=== PATIENT | male | born 1980 | race Caucasian/White ===

== ENCOUNTER 2019-06-07 22:27 | Emergency (ER) | payer MEDICAID, SELFPAY ==
[2019-06-07 22:38] VITALS: BP 169/103; PULSE 94; RESP 18; TEMP 36.8; O2SAT 94
--- NOTE | 2019-06-07 22:49 | ED.GENADUL_ITS ---
Discharge Plan Disposition Patient Disposition: HOME Condition: Good Discharge Details Chief Complaint: Sorethroat Clinical Impression: Tonsillitis, phlegmonous Primary Care Provider: Garret Reed ED Provider: Rafa Harris Meds and New Rx's Prescriptions: New amoxicillin-pot clavulanate [Augmentin] 875-125 mg tablet 1 tab PO BID Qty: 20 RF: 0 Discharge Instructions Instructions: Amoxicillin/Clavulanate Potassium (By mouth), Tonsillitis (ED) Additional Instructions: Rest and hydrate. Take antibiotic as prescribed. Alternate ibuprofen with acetaminophen for pain. Cepacol lozenges can help with throat pain as well. Will need follow-up with ear nose and throat in 24 to 48 hours. Return to ED if difficulty breathing, inability to swallow, mental status changes, other concerns or problems. Referrals: Rober Morris MD [ [facility] STAFF PHYSICIAN] - Medical Decision Making <SERGIO Isbell - Last Filed: 06/07/19 23:43> 22:52 This is a nontoxic-appearing 39-year-old male presenting to the emergency department with sore throat over the last 3 days. Physical exam concerning for early left peritonsillar abscess with notable uvula shift to the right. Muffled voice present on exam. No other significant physical exam findings. Vital signs stable. IV established 10 of Decadron IV push and Unasyn 3 g IV given. Will send patient to CT scan to evaluate severity of abscess. Patient back from CT scan. Labs demonstrate elevated white count and CRP. Case is signed out to Dr. Harris at shift change. See his note for final disposition <Rafa Harris MD - Last Filed: 06/08/19 00:39> Patient CT scan shows tonsillitis as well as phlegmon left palatine tonsils. There is no actual fluid collection or abscess. Does have some lymphadenopathy. Patient reports actually feeling quite a bit better. Will continue on Augmentin. Will refer to ENT for follow-up in 2448 hrs. Patient is to hydrate and use ibuprofen or acetaminophen for discomfort. Return to ED for inability to swallow, difficulty breathing, mental status changes, other concerns or problems. Lab Data Lab results reviewed: Yes I reviewed the patient's lab results. HPI <SERGIO Isbell - Last Filed: 06/07/19 23:43> General Date/Time Provider Initiated Documentation: 06/07/19 22:45 . HPI Narrative: Patient presents to the emergency department with 3 days of worsening throat pain. He locates the pain on the left side with radiation into his jaw and zoroastrianism. He admits to a change in his voice. No fevers. Is having difficulty swallowing secondary to the pain. He denies any shortness of breath Related Data Home Medications Medication Instructions Recorded Confirmed amoxicillin-pot clavulanate 1 tab PO BID #20 tab 06/08/19 [Augmentin] Previous Rx's Medication Instructions Recorded amoxicillin-pot clavulanate 1 tab PO BID #20 tab 06/08/19 [Augmentin] Allergies Allergy/AdvReac Type Severity Reaction Status Date / Time No Known Allergies Allergy Unverified 06/07/19 22:41 General Stated Complaint: Sorethroat SHAVON: 4 Review of Systems <SERGIO Isbell - Last Filed: 06/07/19 23:43> Constitutional Constitutional: Denies chills, Denies fever(s), Denies malaise and Denies weakness ENT Ears, Nose, Mouth, and Throat: Reports change in voice, Denies nasal discharge, Denies neck mass, Reports neck pain, Reports sore throat and Reports throat swelling Cardiovascular Cardiovascular: Denies chest pain and Denies dyspnea Respiratory Respiratory: Denies dyspnea Gastrointestinal Gastrointestinal: Denies nausea and Denies vomiting Musculoskeletal Musculoskeletal: Reports neck pain Neurologic Neurologic: Denies weakness Allergic/Immunologic Allergic/Immunologic: Reports throat swelling PFS <SERGIO Isbell - Last Filed: 06/07/19 23:43> Family History Mother No problems noted. Father No problems noted. Brother No problems noted. Daughter No problems noted. Social History Smoking/Tobacco Use Status: Current every day Alcohol Intake: current Alcohol Intake frequency: 3 or more drinks per day Drug use: Daily Substance use type: marijuana Do you feel safe at home: Yes Exam <SERGIO Isbell Last Filed: 06/07/19 23:43> Const General: cooperative, healthy appearing and comfortable Nutritional Appearance: average body habitus Orientation: alert, awake and oriented x3 HENMT Head: normal to inspection Ears: hearing grossly normal bilaterally, external ears normal and TM's normal bilaterally Face and sinus: normal facial exam Mouth: oral mucosae normal, lip normal and tongue normal Teeth and gingiva: dentition normal Throat: posterior oropharynx abnormal edema, erythema and exudates and uvula laterally displaced to the right Other: No trismus Eyes General: appearance normal, both eyes and all related structures Pupils: PERRL EOM: EOM intact bilaterally Neck Neck: normal visual inspection, full ROM and no lymphadenopathy Lymphatic: lymphadenopathy Chest Chest: normal inspection of the chest Resp Effort & Inspection: normal respiratory effort Auscultation: clear to auscultation bilaterally Cardio Rate: regular rate Rhythm: regular rhythm Skin General skin exam: no rashes or lesions noted Course <SERGIO Isbell - Last Filed: 06/07/19 23:43> Vital Signs Vital signs: Vital Signs Temperature 36.8 C 06/07/19 22:38 Pulse 94 H 06/07/19 22:38 Respiratory Rate 18 06/07/19 22:38 Blood Pressure 169/103 H 06/07/19 22:38 Pulse Oximetry 94 L 06/07/19 22:38 Temperature 36.8 C 06/07/19 22:38 Temperature Source Oral 06/07/19 22:38 Pulse 94 H 06/07/19 22:38 Respiratory Rate 18 06/07/19 22:38 Respiratory Effort Non-Labored 06/07/19 22:40 Blood Pressure 169/103 H 06/07/19 22:38 Blood Pressure Position Sitting 06/07/19 22:38 Pulse Oximetry 94 L 06/07/19 22:38 Oxygen Delivery Method Room Air 06/07/19 22:38 Oxygen Flow Rate 0 06/07/19 22:38 Pain Level 8 06/07/19 22:38 Sign Out <SERGIO Isbell - Last Filed: 06/07/19 23:43> Sign Out Data: Sign Out Comment: Nontoxic-appearing 39-year-old male presenting to the emergency department with symptoms concerning for early peritonsillar abscess. Labs demonstrate elevated white count and inflammatory markers. CT scan pending. Unasyn 3 g IV and Decadron 10 mg IV push given. Case signed out to Dr. Harris at shift change. See his note for final disposition Last updated by Woody Hargrove PA at 06/07/19 23:41
[2019-06-07] MEDS: Dexamethasone 10 MG/ML VIAL IVP (22:58)
[2019-06-07] MEDS: Normal Saline Flush 10 ML SYR IVP (22:58)
[2019-06-07 23:12] LABS: Abs Immature Grans 0.07 k/cumm (0.0-0.09); Absolute Lymphocyte Count 2.25 k/cumm (1.2-3.4); Absolute Monocyte Count 1.45 k/cumm (0.11-0.7); Absolute Neutrophil Count 12.03 k/cumm (1.2-6.7); Basophils % 0.3; Eosinophils % 0.6; HCT 45.3 % (40.0-50.0); HGB 15.6 g/dL (13.5-17.5); Immature Grans % 0.4; Lymphocytes % 14.1; Mean Corp. HGB Concentration 34.4 g/dL (32.0-36.0); Mean Corpuscular Hemoglobin 32.5 pg (27.0-33.0); Mean Corpuscular Volume 94.4 fL (80-95); Mean Platelet Volume 9.6 fL (8.0-11.0); Monocytes % 9.1; Neutrophils % 75.5; Platelet Count 358 x1000/uL (130-400); White Blood Cell Count 15.93 k/cumm (4.4-10.8)
[2019-06-07 23:13] VITALS: BP 125/74; PULSE 75; RESP 16; TEMP 37.2; O2SAT 99
[2019-06-07 23:13] LABS: Absolute Basophil Count 0.05 k/cumm (0.0-0.2)
[2019-06-07 23:24] LABS: C-Reactive Protein 3.01 mg/dL (0.0-0.3)
[2019-06-07 23:25] LABS: ALT 34 U/L (16-63); AST 28 U/L (15-37); Albumin 3.7 g/dL (3.4-5.0); Alkaline Phosphatase 106 U/L (46-116); Anion Gap 9.7 mmol/L (3-11); BUN 7 mg/dL (7-18); Bilirubin, Total 0.4 mg/dL (0.2-1.0); CO2 25.3 mmol/L (21.0-32.0); CREATININE 0.87 mg/dL (0.70-1.30); Calcium 8.6 mg/dL (8.5-10.1); Chloride 105 mmol/L (98-107); Glucose 120 mg/dL (70-100); Sodium 140 mmol/L (136-145); Total Protein 7.4 g/dL (6.4-8.2)
--- NOTE | 2019-06-07 23:41 | NUR.NOTE ---
Nursing Note: Recieved patient report, pt here for tonsilar swelling. Strep negative, medicated with decadron, awaiting CT scan of affected area at this time. Will continue to monitor pts status.
--- NOTE | 2019-06-07 23:50 | DI.CT_ITS ---
EXAM: CT NECK W CLINICAL HISTORY: ?left peritonillar abscess, muffled voice,PAIN,LT SIDED SWELLING TECHNIQUE: Post 100 cc Omnipaque 350 IV. COMPARISON: No exams were available for comparison FINDINGS: The visualized portions of the upper lobes show mild emphysematous changes. The thyroid, submandibul ar and parotid glands appear normal. The orbits and mastoid air cells are unremarkable. There is a minimal amount of mucous retention in the right maxillary sinus. The visualized portions of the brai n are unremarkable. There is artifact from dental work. There is enlargement of the palatine tonsil s, left greater than right. There is narrowing of the airway with some deviation of the airway towar d the right. There is an area of low attenuation visible in the left palatine tonsil measuring rough ly 2 cm in diameter consistent with a phlegmon. There are mildly enlarged reactive lymph nodes. IMPRESSION: Two centimeter phlegmon in the left palatine tonsil. Mild right tonsillar enlargement.
[2019-06-07] MEDS: Omnipaque 350 MG/ML 100 ML BTL IJ (23:51)
--- NOTE | 2019-06-08 00:15 | DI.VRAD_ITS ---
PROCEDURE INFORMATION: Exam: CT Neck With Contrast Exam date and time: 06/07/2019 22:48 Clinical history: 39 years old, male; Painful swallowing and throat pain; Prior surgery; Surgery date: 6+ months; Surgery type: Clavicle; Patient HX: Throat pain with swallowing and swelling more on the left since Friday. Muffled voice ? left peritonillar abscess TECHNIQUE: Imaging protocol: Computed tomography images of the neck with intravenous contrast. Radiation optimization: All CT scans at this facility use at least one of these dose optimization techniques: automated exposure control; mA and/or kV adjustment per patient size (includes targeted exams where dose is matched to clinical indication); or iterative reconstruction. Contrast material: OMNIPAQUE 350; Contrast volume: 100 ml; Contrast route: IV LAC; COMPARISON: No relevant prior studies available. FINDINGS: : Sinuses: Small lobar retention cyst in the right maxillary sinus. Nasopharynx: Unremarkable. Oropharynx: Tonsillitis. Edematous appearance of the palatine tonsils left greater than right. Mild left peritonsillar edema. Approximately 16 x 23 x 20 mm region with thin and adjacent to the left palatine tonsils, intermediate and central density with hazy peripheral enhancement, most likely a phlegmon at this point with no measurable abscess. Hypopharynx: No suspicious lesions Larynx: Normal epiglottis. Retropharyngeal space: Minimal edema with no abscess. Submandibular/Parotid glands: No acute pathology. Thyroid: No enlarged or calcified nodules. Lymph nodes: Mildly prominent jugulodigastric lymph nodes compatible with the presence of tonsillitis. Trachea: Visualized trachea is unremarkable. Lungs: Mild apical emphysema. Bones/joints: Mild degenerative changes in the cervical spine. No acute fracture or subluxation. IMPRESSION: 1. Tonsillitis. 2. Approximately 16 x 23 x 20 mm left tonsillar/peritonsillar phlegmon with no measurable abscess. 3. Additional findings as described. Dictated and Authenticated by: Rebeca Bain MD. Ordering:VERONA Mckay MD
[2019-06-08] MEDS: Amoxicillin 875/Clav. 125 TAB PO (00:25)
[2019-06-08] MEDS: AMPICILLIN/SULBACTAM 3 GM in Normal Saline 100 ML IVPB (00:52)
--- NOTE | 2019-06-08 01:40 | NUR.NOTE ---
Nursing Note:Pt discharged from ED with rx for continued antibiotics. Instructions to follow up with primary physician regarding next step in his care. Pt stated an understanding of instructions given and took his belonging and valuables home with him. Pt very grateful for his care. Pt was pleasant as he thanked staff on his way out of ED.
[2019-06-08 01:53] VITALS: BP 122/74; PULSE 85; RESP 18; TEMP 36.9; O2SAT 99
--- NOTE | 2019-06-08 07:45 | NUR.NOTE ---
Referral and provider note faxed to [facility] [phone].Nursing Note:
== END 2019-06-08 01:22 | disposition home or self-care (01) ==
PROVIDERS: Physician Assistant; Emergency Provider Emergency Medicine; PCP Family Medicine
DX: J03.90 Acute tonsillitis, unspecified (principal); H04.3 Acute and unspecified inflammation of lacrimal passages
CPT/HCPCS: 36415; 70491; 80053; 87880; 96365; 96375; 99285; 85025; 86140; 87081; 99284; J0295; J1100; J3490

== ENCOUNTER 2020-05-02 10:12 | Emergency (ER) | payer MEDICAID, SELFPAY ==
--- NOTE | 2020-05-02 10:14 | ED.GENADUL_ITS ---
Discharge Plan Disposition Patient Disposition: HOME Condition: Stable Discharge Details Clinical Impression: Finger laceration Primary Care Provider: Garret Reed ED Provider: Cynthia Mullen Home Meds and New Rx's Prescriptions: New cephalexin [Keflex] 500 mg capsule 500 mg PO TID 7 Days Qty: 21 RF: 0 Discharge Instructions Instructions: Finger Laceration (ED) Additional Instructions: Keep wound clean and dry. Cover wound with bandage if risk of contamination. Otherwise you can keep the wound open to air if resting at home to allow edges to dry and heal. Use antibiotics until finished. Call the orthopedist office today to schedule a follow-up appointment for reevaluation next week. Return immediately to the emergency department if you develop any worsening or new concerning symptoms. Discharge Data Discharge Date/Time-TO BE ENTERED AT DEPARTURE: 05/02/20 13:44 Discharge Physician: Cynthia Mullen Medical Decision Making 40-year-old male with left second and third finger lacerations sustained on a sharp edge of steel siding that he cut at work yesterday at around 3 PM. Tetanus 2011. Patient has deep C shaped flap lacerations to dorsal aspect of proximal phalanges of second and third fingers. Patient needs suture placement as lacerations extend deep through soft tissue. There is no obvious bony or tendon injury. He is neurovascularly intact. Will give a tetanus due to depth of wound and consideration of contamination. There is no obvious foreign body or fracture. Patient referred for x-ray which was negative for bony injury. Case discussed with orthopedics on-call as wounds approximately over 18 hours old -- agree with plan for loose suture placement, antibiotics and will follow up with patient in 1 week in the office. Wounds were soaked well in saline and Betadine. Digital block administered to both second and third fingers. 5 nylon 5-0 sutures placed to left second finger and 3 nylon 5-0 sutures placed to left third finger. 2 gauze dressings and finger splints placed. Patient given a dose of Keflex here and prescription for home. Patient placed on orthopedic follow-up list. Usual and customary return precautions given prior to discharge. Medical Records Medical records reviewed: Yes I reviewed the patient's medical records. Imaging Data Radiologic Study: Radiologist's impression: XR HAND LT COMPLETE CLINICAL HISTORY: cut L 2nd and 3rd fingers with piece of steel. TECHNIQUE: 2D digital imaging was performed. COMPARISON: No exams were available for comparison FINDINGS: BONES: No acute fracture is present. No bony destructive lesion is seen. JOINTS: No dislocation present. SOFT TISSUE: Soft tissue swelling or of the 2nd and 3rd fingers. No foreign body. IMPRESSION: Soft tissue swelling of the 2nd and 3rd fingers.. HPI General Mode of arrival: ambulatory . Date/Time Provider Initiated Documentation: 05/02/20 10:12 . Limitations to Documentation: no limitations . Information obtained by: patient . HPI Narrative: Patient is a 40-year-old male who presents with left second and third finger lacerations on a cut piece of steel siding that occurred at work yesterday around 3 PM. Patient states his coworker bandaged his finger and he returned to work today and they advised him to come to the ER for further evaluation. He states his last tetanus was 2011. Related Data Home Medications Medication Instructions Recorded Confirmed cephalexin [Keflex] 500 mg PO TID 7 Days #21 cap 05/02/20 Previous Rx's Medication Instructions Recorded cephalexin [Keflex] 500 mg PO TID 7 Days #21 cap 05/02/20 Allergies Allergy/AdvReac Type Severity Reaction Status Date / Time No Known Allergies Allergy Unverified 05/02/20 10:19 General SHAVON: 4 Review of Systems All systems reviewed & are unremarkable except as noted in HPI and below Constitutional Constitutional: Reports as per HPI, Denies chills and Denies fever(s) Eyes Eyes: Denies blurry vision ENT Ears, Nose, Mouth, and Throat: Denies dizziness, Denies sore throat and Denies throat swelling Cardiovascular Cardiovascular: Denies chest pain and Denies dyspnea Respiratory Respiratory: Denies cough and Denies dyspnea Gastrointestinal Gastrointestinal: Denies abdominal pain, Denies diarrhea and Denies vomiting Genitourinary Genitourinary: Denies hematuria and Denies dysuria Musculoskeletal Musculoskeletal: Denies back pain and Denies numbness Integumentary/Breasts Skin/Breast: Denies lesions and Denies rash Neurologic Neurologic: Denies dizziness, Denies localized weakness and Denies numbness Allergic/Immunologic Allergic/Immunologic: Denies throat swelling [facility] Medical History (Updated 05/02/20 @ 13:34 by Cynthia Mullen DO) Peritonsillar abscess Surgical History (Updated 05/02/20 @ 10:59 by Cynthia Mullen DO) History of surgery on extremity Family History Mother No problems noted. Father No problems noted. Brother No problems noted. Daughter No problems noted. Social History Smoking/Tobacco Use Status: Current every day Alcohol Intake: current Alcohol Intake frequency: 3 or more drinks per day Drug use: Daily Substance use type: marijuana Do you feel safe at home: Yes Exam Const General: cooperative, healthy appearing and no acute distress HENMT Head: normal to inspection Mouth: oral mucosae normal Eyes General: appearance normal, both eyes and all related structures Neck Neck: normal visual inspection Resp Effort & Inspection: normal respiratory effort and able to speak in complete sentences Cardio Rate: regular rate Skin General skin exam: no rashes or lesions noted Neuro General: patient alert, patient awake and patient oriented x3 Motor: muscle tone normal throughout Other: Motor/sensory grossly intact left first through fifth fingers. Extrem General: full ROM and capillary refill normal Hand/finger images: 1. 3 cm C shaped flap laceration noted on left dorsal second finger of proximal phalange. Extends into dermis and soft tissue. There is no obvious bony or tendon injury. 2. 2 cm C-shaped flap laceration noted on left dorsal third finger of proximal phalange. Extends into dermis and soft tissue. There is no obvious bony or tendon injury. Psych Appearance: grossly normal Affect: normal affect Procedures Laceration Laceration 1: Site: hand Side (If applicable): left (Second finger) Size (cm): 3 Description: flap Depth: simple, single layer Local Anesthetic: Lidocaine 1% Amount of anesthesia used (mL): 5 Pre-repair: wound explored, irrigated extensively and deep structures intact Skin layer closed with: nylon Size (cm): 5-0 Number of sutures: 5 Technique: simple, interrupted Laceration 2: Site: hand Side (If applicable): left (Third finger) Size (cm): 2 Description: flap Depth: simple, single layer Local Anesthetic: Lidocaine 1% Amount of anesthesia used (mL): 5 Pre-repair: wound explored, irrigated extensively and deep structures intact Skin layer closed with: nylon Size (cm): 5-0 Number of sutures: 3 Technique: simple, interrupted
[2020-05-02 10:15] VITALS: BP 153/116; PULSE 105; RESP 18; TEMP 36.6; O2SAT 96
--- NOTE | 2020-05-02 10:45 | DI.RAD_ITS ---
EXAM: XR HAND LT COMPLETE CLINICAL HISTORY: cut L 2nd and 3rd fingers with piece of steel. TECHNIQUE: 2D digital imaging was performed. COMPARISON: No exams were available for comparison FINDINGS: BONES: No acute fracture is present. No bony destructive lesion is seen. JOINTS: No dislocation present. SOFT TISSUE: Soft tissue swelling or of the 2nd and 3rd fingers. No foreign body. IMPRESSION: Soft tissue swelling of the 2nd and 3rd fingers.. DATA REPOSITORY: RADIATION DOSE DELIVERED:
[2020-05-02] MEDS: Ibuprofen 600 MG TAB PO (11:11)
[2020-05-02] MEDS: Lidocaine/Epinephri/Tetracaine Topical Gel 3 ML (11:12)
[2020-05-02] MEDS: Cephalexin 500 MG CAP PO (12:33)
--- NOTE | 2020-05-02 13:45 | NUR.NOTE ---
Nursing Note: Per provider request. Both the left index and left middle finger were cleansed. Antibiotic ointment applied, fingers wrapped in gauze and individual splints applied to each finger.
== END 2020-05-02 13:44 | disposition home or self-care (01) ==
PROVIDERS: Emergency Provider Physician Assistant; PCP Family Medicine
DX: S61.211A Laceration without foreign body of left index finger without damage to nail, initial encounter (principal); S61.213A Laceration without foreign body of left middle finger without damage to nail, initial encounter; W26.8XXA Contact with other sharp object(s), not elsewhere classified, initial encounter; Y99.0 Civilian activity done for income or pay
CPT/HCPCS: 12002; 90471; 73130

== ENCOUNTER 2022-02-23 15:04 | Outpatient (REF) | payer MEDICAID, SELFPAY ==
[2022-02-23 12:14] LABS: Absolute Eosinophil Count 0.15 10^3/uL (0.0-0.7); Absolute Lymphocyte Count 1.86 10^3/uL (1.2-3.4); Absolute Monocyte Count 1.21 10^3/uL (0.1-0.8); Basophils % 0.7; HCT 48.2 % (40.0-50.0); HGB 16.2 g/dL (13.5-17.5); Immature Grans % 0.7; Lymphocytes % 12.4; MCH 32.7 pg (27.0-33.0); MCHC 33.6 % (32.0-36.0); MCV 97 fL (80-95); MPV 9.8 fL (8.0-11.0); Monocytes % 8.1; Neutrophils % 77.1; Platelet Count 330 10^3/uL (130-400); RBC 4.96 10^6/uL (4.36-5.78); RDW 11.9 % (11.8-14.1); RDW-SD 42.5 fL; WBC 14.97 10^3/uL (4.4-10.8)
[2022-02-23 12:19] LABS: Absolute Neutrophil Count 11.54 10^3/uL (1.2-6.7)
[2022-02-23 12:59] LABS: D-Dimer 279 ng/mlFEU (<500)
== END 2022-02-23 15:05 | disposition home or self-care (01) ==
LOC: LBN 15:04
PROVIDERS: Visit Provider Nurse Practitioner Family
DX: L03.115 Cellulitis of right lower limb (principal); M79.89 Other specified soft tissue disorders; R22.41 Localized swelling, mass and lump, right lower limb
CPT/HCPCS: 85025; 85379

== ENCOUNTER → 2022-02-25 09:12 | Outpatient (CLI) | payer MEDICAID, SELFPAY ==
--- NOTE | 2022-02-25 | DI.US_ITS ---
Exam(s) US LOWER EXTREMITY VENOUS RT EXAM: US LOWER EXTREMITY VENOUS RT CLINICAL HISTORY: SWELLING RT LEG, M79.89 TECHNIQUE: Grayscale, color, and doppler imaging of the deep venous system of the right lower extrem ity was performed. COMPARISON: US SCROTUM US from 07/01/2016 FINDINGS: There is no evidence of intraluminal thrombus and there is normal compression and augmentation demons trated within the common femoral vein, femoral vein, and popliteal vein. In the ipsilateral calf the interrogated veins also exhibit normal compression/ augmentation properti es. The ipsilateral saphenofemoral junction is patent. IMPRESSION: 1. No evidence of DVT in the right lower extremity. DATA REPOSITORY:
== END ==
PROVIDERS: Visit Provider Nurse Practitioner Family
DX: M79.89 Other specified soft tissue disorders (principal)
CPT/HCPCS: 93971

== ENCOUNTER 2023-01-07 09:50 | Outpatient (CLI) | payer MEDICAID, SELFPAY ==
--- NOTE | 2023-01-07 | DI.RAD_ITS ---
Exam(s) XR KNEE RT 3V AP,LAT,KEVIN EXAM: XR KNEE RT 3V AP,LAT,KEVIN CLINICAL HISTORY: EFFUSION RT KNEE, M25.461. TECHNIQUE: 2D digital imaging was performed of the right knee. Four views obtained. AP, lateral and PA tunnel views were obtained. COMPARISON: There are no priors for comparison. FINDINGS: BONES: No acute fracture is present. No bony destructive lesion is seen. JOINTS: The knee is normally aligned. There is a small joint effusion. SOFT TISSUE: There is mild soft tissue swelling anterior to the patella. IMPRESSION: Small joint effusion and soft tissue swelling anterior to the patella. Otherwise unremarkable examin ation. DATA REPOSITORY: RADIATION DOSE DELIVERED:
== END 2023-01-07 10:10 ==
PROVIDERS: Visit Provider Nurse Practitioner Family
DX: M25.461 Effusion, right knee (principal)
CPT/HCPCS: 73562

== ENCOUNTER 2023-01-07 13:15 | Outpatient (REF) | payer MEDICAID, SELFPAY ==
[2023-01-07 14:49] LABS: Abs Immature Grans 0.08 10^3/uL (0.0-0.06); Absolute Basophil Count 0.07 10^3/uL (0.0-0.2); Absolute Eosinophil Count 0.08 10^3/uL (0.0-0.7); Absolute Lymphocyte Count 1.81 10^3/uL (1.2-3.4); Absolute Monocyte Count 0.69 10^3/uL (0.1-0.8); Absolute Neutrophil Count 8.26 10^3/uL (1.2-6.7); Basophils % 0.6; Eosinophils % 0.7; HCT 49.4 % (40.0-50.0); HGB 17.2 g/dL (13.5-17.5); Immature Grans % 0.7; Lymphocytes % 16.5; MCH 33.5 pg (27.0-33.0); MCHC 34.8 % (32.0-36.0); MCV 96 fL (80-95); MPV 10.3 fL (8.0-11.0); Monocytes % 6.3; Neutrophils % 75.2; Platelet Count 370 10^3/uL (130-400); RBC 5.13 10^6/uL (4.36-5.78); RDW 12.3 % (11.8-14.1); RDW-SD 44.2 fL; WBC 10.99 10^3/uL (4.4-10.8)
[2023-01-07 14:51] LABS: ESR 17 mm/hr (0-15)
[2023-01-08 12:29] LABS: Lyme Ab w Rflx to Lyme Confirm Positive (Negative)
[2023-01-08 16:10] LABS: Lyme IgG Ab Positive (Negative); Lyme IgM Ab Negative (Negative)
== END 2023-01-07 13:16 | disposition home or self-care (01) ==
LOC: LBN 13:15
PROVIDERS: Visit Provider Nurse Practitioner Family
DX: M25.461 Effusion, right knee (principal)
CPT/HCPCS: 85652; 86617; 85025; 86618

== ENCOUNTER 2023-01-25 10:20 | Emergency (ER) | payer MEDICAID, SELFPAY ==
[2023-01-25 10:26] VITALS: BP 153/92; PULSE 100; RESP 18; TEMP 36.8; O2SAT 99
--- NOTE | 2023-01-25 10:30 | DI.US_ITS ---
Exam(s) US LOWER EXTREMITY VENOUS RT EXAM: US LOWER EXTREMITY VENOUS RT CLINICAL HISTORY: Right leg pain. TECHNIQUE: Lower extremity venous ultrasound performed using grayscale, color-flow, and spectral Do ppler analysis. COMPARISON: No exams were available for comparison FINDINGS: The common femoral, femoral and popliteal veins demonstrate normal compressibility, augmentation, and color Doppler. The posterior tibial veins are patent. No saphenous vein thrombosis or other superfi cial venous thrombosis is seen. No hematoma or Hamlin's cyst is seen. IMPRESSION: Negative lower extremity ultrasound. No evidence of DVT. DATA REPOSITORY:
--- NOTE | 2023-01-25 10:43 | ED.GENADUL_ITS ---
Discharge Plan Disposition Patient Disposition: Home Discharge Details Clinical Impression: Nodule of skin of right lower extremity, Superficial bruising of thigh, Blood pressure elevated without history of HTN Primary Care Provider: Erica Julien ED Provider: Randall Hernandez Home Meds and New Rx's Prescriptions: Continued cephalexin 500 mg capsule 500 mg PO QID Qty: 40 0RF doxycycline hyclate 100 mg capsule 100 mg PO BID Discharge Instructions Instructions: Contusion in Adults (ED) Additional Instructions: Please read all of the information that accompanies these instructions. You were seen in the emergency department for your leg pain. Your ultrasound showed no sign of any blood clots in your leg. As we discussed, if you develop fevers worsening pain or have any other concerns please return to the emergency department. Please schedule an appointment with your primary care provider later this week. Discharge Data Discharge Date/Time-TO BE ENTERED AT DEPARTURE: 01/25/23 12:02 Medical Decision Making This is a mildly tachycardic but normotensive and normothermic 42-year-old male with atraumatic right thigh ecchymosis and pain concerning for DVT. Patient's foot is warm well perfused and he has no vascular risk factors so I am not concerned for acute arterial insufficiency. Furthermore, right foot is warm well perfused. No changes of phlegmasia to suggest complicated DVT. No pain out of proportion to suggest necrotizing soft tissue infection. No history of trauma to suggest benefit from plain films and my suspicion for acute osseous abnormality is exceedingly low. Patient is on outpatient treatment for Lyme with doxycycline but has no significant joint pain nor swelling to suggest septic joint. No chest pain or shortness of breath to suggest Lyme carditis. Given no shortness of breath so I am not concerned for PE so I did not order a D-dimer. Will reassess following right lower extremity duplex study. Concerning the patient's pedunculated right popliteal fossa skin nodule he has outpatient primary care follow-up. There is no surrounding erythema to suggest cellulitis. Patient has had changes over the past several months and he may or may not benefit from a biopsy but will defer this decision to his primary care provider as he has close interval follow-up. If his ultrasound does show DVT this is certainly concerning for the possibility of malignancy as this would be an unprovoked DVT. 12 PM Right lower extremity duplex negative for DVT. Patient had resolved tachycardia without intervention in the ED. I advised ED return if he developed any worsening leg pain and any color changes in his leg or any fevers. I did advise PCP follow-up given his elevated blood pressure without diagnosis of hypertension. HPI General Date/Time Provider Initiated Documentation: 01/25/23 10:42 . HPI Narrative: This is a 42-year-old tobacco smoker arriving via private vehicle in the setting of right lower extremity pain. Patient reports that several weeks ago he was treated with doxycycline for 28 days in the setting of Lyme disease. He says he has also developed over the past week pain from his right thigh down to his foot. He also noticed some bruising in his right thigh. He is concerned for the possibility of a blood clot. He has never had a PE nor DVT in the past. He denies any trauma to his right lower extremity. He has not had any recent falls. He has also noticed a skin nodule behind his right knee that has changed over the past several weeks. He has had no chest pain no shortness of breath no nausea no vomiting. Related Data Home Medications Medication Instructions Recorded Confirmed cephalexin 500 mg capsule 500 mg PO QID #40 caps 05/08/21 05/08/21 doxycycline hyclate 100 mg capsule 100 mg PO BID 01/09/23 01/25/23 Previous Rx's Medication Instructions Recorded cephalexin 500 mg capsule 500 mg PO QID #40 caps 05/08/21 Allergies Allergy/AdvReac Type Severity Reaction Status Date / Time No Known Allergies Allergy Unverified 05/08/21 18:25 General Stated Complaint: Vascular SHAVON: 3 PFSH All Active Problems (Updated 01/25/23 @ 11:59 by Randall Hernandez MD) Nodule of skin of right lower extremity (Acute) Superficial bruising of thigh (Acute) Blood pressure elevated without history of HTN (Acute) Effusion, right knee (Acute ~01/07/23) Tonsillar hypertrophy (Acute) Tonsillitis (Acute) Medical History (Updated 01/25/23 @ 11:59 by Randall Hernandez MD) Peritonsillar abscess Tick bite (~01/07/23) Surgical History History of surgery on extremity Family History Mother No problems noted. Father No problems noted. Brother No problems noted. Daughter No problems noted. Social History Smoking/Tobacco Use Status: Current every day Tobacco Type: cigarettes Smoking risk assessment performed?: Yes Alcohol Intake: current Alcohol Intake frequency: 3 or more drinks per day Drug use: Daily Substance use type: marijuana Do you feel safe at home: Yes Exam Narrative Exam Narrative: General: Well-appearing in no acute distress speaking in complete sentences. Head: Normocephalic, atraumatic. Eye: Extraocular eye movements intact. No conjunctival injection. No scleral icterus. Ear, nose, mouth, throat: Grossly normal inspection. Normal voice, handling secretions normally. Neck: Trachea midline. Cardiovascular: Well-perfused distal extremities. Respiratory: Nonlabored respiration. Gastrointestinal: Nondistended abdomen. Musculoskeletal: Right lower extremity with superficial ecchymosis on medial aspect of right mid thigh. Posterior to the right knee there is an approximately 1 cm pedunculated skin nodule with no surrounding erythema nor tenderness. Right foot warm well perfused with less than 2-second cap refill in the right toes. 5 out of 5 right lower extremity strength in dorsi and plantarflexion. 2+ right PT and DP pulses. Skin: Normal for age and race, grossly normal temperature and turgor. No acute rash. Neurologic: Alert and appropriate, no apparent acute deficits. Psychiatric: Mood and manner are appropriate. Grooming and personal hygiene are appropriate. Course Vital Signs Vital signs: Vital Signs Temperature 36.8 C 01/25/23 10:26 Pulse 100 H 01/25/23 10:26 Respiratory Rate 18 01/25/23 10:26 Blood Pressure 153/92 H 01/25/23 10:26 Pulse Oximetry 99 01/25/23 10:26 Temperature 36.8 C 01/25/23 10:26 Pulse 100 H 01/25/23 10:26 Respiratory Rate 18 01/25/23 10:26 Respiratory Effort Normal, Non-Labored 01/25/23 10:29 Blood Pressure 153/92 H 01/25/23 10:26 Pulse Oximetry 99 01/25/23 10:26 Oxygen Delivery Method Room Air 01/25/23 10:26 Oxygen Flow Rate 0 01/25/23 10:26
--- NOTE | 2023-01-25 11:40 | DI.VRAD_ITS ---
PROCEDURE INFORMATION: Exam: US Duplex Right Lower Extremity Veins, Limited Exam date and time: 01/25/2023 11:10 AM Age: 42 years old Clinical indication: Pain; Leg, upper and leg, lower; Right TECHNIQUE: Imaging protocol: Real-time duplex ultrasound of the right extremity with 2-D quinones scale, color Doppler flow and spectral waveform analysis including responses to compression and other maneuvers (when performed) with image documentation. Limited exam was focused on the right lower extremity veins. COMPARISON: US LOWER EXTREMITY VENOUS RT 02/25/2022 10:49 AM FINDINGS: Right deep veins: Unremarkable. The common femoral, femoral, proximal profunda femoral and popliteal veins are patent without thrombus. Normal Doppler waveforms. Normal compressibility and/or augmentation response. Right superficial veins: Unremarkable. Saphenofemoral junction is patent without thrombus. Soft tissues: Unremarkable. IMPRESSION: No evidence of deep vein thrombosis. Dictated and Authenticated by: Khanh Cedeño MD. Ordering:TONI Pereira MD
[2023-01-25 11:54] VITALS: PULSE 70
== END 2023-01-25 12:02 | disposition home or self-care (01) ==
PROVIDERS: Emergency Provider Emergency Medicine; PCP Nurse Practitioner Family
DX: R22.41 Localized swelling, mass and lump, right lower limb (principal); S70.11XA Contusion of right thigh, initial encounter; R03.0 Elevated blood-pressure reading, without diagnosis of hypertension; A69.20 Lyme disease, unspecified; X58.XXXA Exposure to other specified factors, initial encounter
CPT/HCPCS: 99284; 93971; 99283

== ENCOUNTER 2023-01-27 14:44 | Outpatient (CLI) | payer MEDICAID, SELFPAY ==
--- NOTE | 2023-01-27 14:30 | RT.EKG_ITS ---
APPROVED REPORT Exam: Resting ECG Reason for Exam: Lab f/u Patient Location: O HR:86 bpm ECG Measurements Heart Rate 86 AXIS OR 152 P 21 QRSd 70 QRS 47 QT 380 T 67 QTc 455 Conclusion Sinus rhythm...normal P axis, V-rate 50- 99 Probable left atrial enlargement...P >50mS, <-0.10mV V1 Otherwise normal ECG
== END 2023-01-27 14:45 | disposition home or self-care (01) ==
LOC: DI.CM 14:46
PROVIDERS: PCP Nurse Practitioner Family; Visit Provider Nurse Practitioner Family
DX: R00.0 Tachycardia, unspecified (principal)
CPT/HCPCS: 93010

== ENCOUNTER 2023-01-27 21:53 | Outpatient (REF) | payer MEDICAID, SELFPAY ==
[2023-01-27 22:32] LABS: BUN 6 mg/dL (7-18); CREATININE 0.9 mg/dL (0.70-1.30); Calcium 9.1 mg/dL (8.5-10.1); Chloride 105 mmol/L (98-107); Estimated GFR 108.68 (mL/min/1.73m2); Glucose 111 mg/dL (74-106); Potassium 4.4 mmol/L (3.5-5.1); Sodium 141 mmol/L (136-145)
[2023-01-27 22:51] LABS: Microalb ug/mg Crea 7.6 ug/mg Cr
== END 2023-01-27 21:54 | disposition home or self-care (01) ==
LOC: LBN 21:53
PROVIDERS: PCP Nurse Practitioner Family; Visit Provider Nurse Practitioner Family
DX: I10 Essential (primary) hypertension (principal); R00.0 Tachycardia, unspecified
CPT/HCPCS: 80048; 82043; 82570

== ENCOUNTER 2023-03-05 12:26 | Outpatient (REF) | payer MEDICAID, SELFPAY ==
--- NOTE | 2023-03-05 11:40 | KNEE_PTH ---
PATIENT: Masood Graham LOC: [facility]#:[id number] AGE/SX: 42/M ROOM: RE03/05/[address]: Ishmael Ronquillo DNP : 1980 BED: DIS: 03/05/2023 SPEC #: [id number] RECD: 03/06/23 10:45 STATUS: RUPERT REQ #: [id number] JELANI: 03/05/23 11:[address]: Ishmael Estrada DEPT: Surgical Specimen RECD BY: [employer] Brady Tissues: 1 - SKIN BIOPSY(SHAVE/PUNCH) Procedures: SKIN LEVEL 4 Comments: [id number]
== END 2023-03-05 12:27 | disposition home or self-care (01) ==
LOC: NCHCN 12:26
PROVIDERS: PCP Nurse Practitioner Family; Visit Provider Nurse Practitioner Family
DX: D23.71 Other benign neoplasm of skin of right lower limb, including hip (principal)
CPT/HCPCS: 88305

== ENCOUNTER 2023-09-02 03:24 | Outpatient (CLI) | payer MEDICAID, SELFPAY ==
[2023-09-02 12:50] LABS: Abs Immature Grans 0.13 10^3/uL (0.0-0.06); Absolute Eosinophil Count 0.06 10^3/uL (0.0-0.7); Absolute Lymphocyte Count 2.47 10^3/uL (1.2-3.4); Absolute Monocyte Count 0.57 10^3/uL (0.1-0.8); Absolute Neutrophil Count 5.35 10^3/uL (1.2-6.7); Basophils % 1.2; Eosinophils % 0.7; HGB 17.1 g/dL (13.5-17.5); Immature Grans % 1.5; Lymphocytes % 28.5; MCH 33.6 pg (27.0-33.0); MCHC 34.2 % (32.0-36.0); MCV 98 fL (80-95); MPV 9.9 fL (8.0-11.0); Monocytes % 6.6; Neutrophils % 61.5; Platelet Count 345 10^3/uL (130-400); RBC 5.09 10^6/uL (4.36-5.78); RDW 11.6 % (11.8-14.1); RDW-SD 42.5 fL; WBC 8.68 10^3/uL (4.4-10.8)
[2023-09-02 13:00] LABS: Hemoglobin A1C 5.3 % (<5.7)
[2023-09-02 14:31] LABS: ALT 55 U/L (16-63); AST 62 U/L (15-37); Albumin 3.3 g/dL (3.4-5.0); Alkaline Phosphatase 100 U/L (46-116); BUN 7 mg/dL (7-18); Bilirubin, Total 0.2 mg/dL (0.2-1.0); CREATININE 0.9 mg/dL (0.70-1.30); Calcium 8.9 mg/dL (8.5-10.1); Chloride 105 mmol/L (98-107); Cholesterol 176 mg/dL (<200); Estimated GFR 108.01 (mL/min/1.73m2); Glucose 104 mg/dL (74-106); HDL Cholesterol 70 mg/dL (40-60); Potassium 4.2 mmol/L (3.5-5.1); Sodium 140 mmol/L (136-145); TSH (W/Ref FT4) 1.26 uIU/mL (0.36-3.74); Total Protein 7.2 g/dL (6.4-8.2); Triglyceride 415 mg/dL (<150); Vitamin B12 331 pg/mL (193-986)
[2023-09-02 14:43] LABS: LDL CHOLESTEROL 60 mg/dL (<100)
[2023-09-02 19:07] LABS: Hepatitis C Ab w Rflx HCV PCR Negative (Negative)
== END 2023-09-02 03:25 | disposition home or self-care (01) ==
LOC: LOS 03:24
PROVIDERS: PCP Nurse Practitioner Family; Visit Provider Nurse Practitioner Family
DX: I10 Essential (primary) hypertension (principal); E78.1 Pure hyperglyceridemia; F10.20 Alcohol dependence, uncomplicated; R79.89 Other specified abnormal findings of blood chemistry; K92.1 Melena; Z11.59 Encounter for screening for other viral diseases
CPT/HCPCS: 36415; 80053; 80061; 83721; 86803; 82607; 83036; 84443; 85025

== ENCOUNTER 2023-10-09 12:21 | Outpatient (CLI) | payer MEDICAID, SELFPAY ==
[2023-10-09 12:31] LABS: Prothrombin Time 9.6 sec (9.1-11.1)
[2023-10-09 13:41] LABS: ALT 62 U/L (16-63); AST 66 U/L (15-37); Albumin 3.7 g/dL (3.4-5.0); Alkaline Phosphatase 104 U/L (46-116); Bilirubin, Total 0.3 mg/dL (0.2-1.0); Ferritin 259 ng/mL (26-388); Folate 6.5 ng/mL (8.6-20.0); Total Protein 7.3 g/dL (6.4-8.2); Vitamin B12 355 pg/mL (193-986)
[2023-10-09 13:51] LABS: Bilirubin, Direct 0.1 mg/dL (0.0-0.2); GGT 265 U/L (15-85)
[2023-10-09 14:02] LABS: C-Reactive Protein < 0.50 mg/dL (<or=0.5)
== END 2023-10-09 12:22 | disposition home or self-care (01) ==
LOC: LBO 12:22
PROVIDERS: PCP Nurse Practitioner Family; Visit Provider Surgery
DX: R79.89 Other specified abnormal findings of blood chemistry (principal); K62.5 Hemorrhage of anus and rectum; Z83.79 Family history of other diseases of the digestive system; I10 Essential (primary) hypertension; F10.20 Alcohol dependence, uncomplicated; Z87.891 Personal history of nicotine dependence
CPT/HCPCS: 36415; 80076; 82607; 82728; 82746; 82977; 85610; 86140

== ENCOUNTER → 2023-10-15 02:56 | Outpatient (CLI) | payer MEDICAID, SELFPAY ==
--- NOTE | 2023-10-15 07:00 | DI.US_ITS ---
Exam(s) US ABDOMEN EXAM: US ABDOMEN CLINICAL HISTORY: CIRRHOSIS,PORTAL HYPERTENSION,ELEVATED LFT'S TECHNIQUE: Ultrasound abdomen performed using standard protocol. COMPARISON: No exams were available for comparison FINDINGS: LIVER: Enlarged at 21 cm in length. Increased echogenicity and decreased through transmission consis tent with moderate to severe hepatic steatosis. The posterior portions of the liver are not well see n. No focal liver lesions are seen. GALLBLADDER: No evidence of cholelithiasis. No evidence of wall thickening. No pericholecystic fluid identified. RYAN'S SIGN: Negative. BILIARY SYSTEM: No intrahepatic or extrahepatic biliary ductal dilation. KIDNEYS: Kidneys are symmetric in size. Question of a small echogenic focus in each kidney which coul d represent small stones versus artifact. No evidence of hydronephrosis. No renal mass or cyst ident ified. PANCREAS: Partially obscured. SPLEEN: Not enlarged. ABDOMINAL AORTA AND IVC: Visualized portions normal caliber. ASCITES: None seen. IMPRESSION: Enlarged liver with moderate to severe hepatic steatosis. Question of small nonobstructing bilateral renal calculi versus artifact. DATA REPOSITORY:
== END ==
PROVIDERS: PCP Nurse Practitioner Family; Visit Provider Surgery
DX: K74.69 Other cirrhosis of liver (principal); K76.6 Portal hypertension; K76.0 Fatty (change of) liver, not elsewhere classified; R16.0 Hepatomegaly, not elsewhere classified; R94.5 Abnormal results of liver function studies; N28.89 Other specified disorders of kidney and ureter; F10.20 Alcohol dependence, uncomplicated; I10 Essential (primary) hypertension
CPT/HCPCS: 76700

== ENCOUNTER 2025-05-15 01:55 | Emergency (ER) | payer SELFPAY ==
[2025-05-15] VITALS (69 sets, daily range): BP systolic 69–145; BP diastolic 39–127; PULSE 68–112; RESP 11–25; TEMP 37.1; O2SAT 91–99
--- NOTE | 2025-05-15 01:45 | RT.EKG_ITS ---
APPROVED REPORT Exam: Resting ECG Reason for Exam: withdrawal Patient Location: E HR:110 bpm ECG Measurements Heart Rate 110 AXIS AL 172 P 62 QRSd 95 QRS 66 QT 319 T 67 QTc 433 Conclusion Sinus tachycardia...rate> 99 Probable left atrial enlargement...P >50mS, <-0.10mV V1 sinus tachycardia limited interp 2/t baseline artifact
--- NOTE | 2025-05-15 02:02 | W.ED.GENAD ---
Discharge Plan Discharge Details Chief Complaint: ETOHWithdr Clinical Impression: Acute renal failure, Acute uremia, Alcohol withdrawal Primary Care Provider: Erica Julien ED Provider: Susan Urban Home Meds and New Rx's Prescriptions: No Action amlodipine 5 mg tablet 5 mg PO DAILY Qty: 90 3RF lisinopril 40 mg tablet 40 mg PO DAILY Qty: 90 3RF HPI General Mode of arrival: ambulatory. Date/Time Provider Initiated Documentation: 05/15/25 01:59. Limitations to Documentation: no limitations. Information obtained by: patient and EMS. HPI Narrative: 45yo M with hx HTN, ETOH dependence, presenting with concern for withdrawal. Has been cutting back on alcohol for the past 4-5 days. Last drink at around 1700 today (beer). Has been feeling increasingly lightheaded, weak, nauseated, unable to keep still. Some vomiting though not frequent (non bloody nonbilious), has been having abdominal cramping and frequent loose stools. No blood or melena. Decreased PO. No history of ETOH withdrawal prior (states I was never able to actually stop); no DTs, seizures, or hospitalizations. Otherwise in his usual state of health with no fevers, chills, rash, dysuria, hematuria, chest pain, shortness of breath, LE edema, or other concerns. Related Data Home Medications ?Medication ?Instructions ?Recorded ?Confirmed amlodipine 5 mg tablet 5 mg PO DAILY #90 tabs 12/30/24 12/30/24 lisinopril 40 mg tablet 40 mg PO DAILY #90 tabs 04/26/25 Previous Rx's ?Medication ?Instructions ?Recorded amlodipine 5 mg tablet 5 mg PO DAILY #90 tabs 12/30/24 lisinopril 40 mg tablet 40 mg PO DAILY #90 tabs 04/26/25 Allergies Allergy/AdvReac Type Severity Reaction Status Date / Time No Known Allergies Allergy Unverified 12/30/24 09:12 General Stated Complaint: ETOHWithdr SHAVON: 3 Review of Systems Narrative: see HPI Exam Narrative Exam Narrative: General: Anxious, fidgeting Head: Normocephalic, atraumatic Neck: Trachea midline, ?Neck supple. ENT: ?Slightly dry MM.? Cardiac: ?Tachycardiac, regular, no murmurs appreciated Resp: No respiratory distress. CTAB. Abd: ?Soft, non-distended, nontender : ?No suprapubic tenderness. Extremities: ?No deformities.? No peripheral edema. Neurologic: GCS 15. ? Moves all extremities freely against gravity Course Vital Signs Vital signs: Vital Signs Temperature 37.1 C 05/15/25 01:55 Pulse 105 H 05/15/25 01:55 Respiratory Rate 18 05/15/25 01:55 Blood Pressure 145/127 H 05/15/25 01:55 Pulse Oximetry 98 05/15/25 01:55 Temperature 37.1 C 05/15/25 01:55 Temperature Source Temporal Artery Scan 05/15/25 01:55 Pulse 105 H 05/15/25 01:55 Respiratory Rate 18 05/15/25 01:55 Blood Pressure 145/127 H 05/15/25 01:55 Blood Pressure Position Supine 05/15/25 01:55 Pulse Oximetry 98 05/15/25 01:55 Oxygen Delivery Method Room Air 05/15/25 01:55 Oxygen Flow Rate 0 05/15/25 01:55 Pain Level 0 05/15/25 01:55 Medical Decision Making 45yo M with hx HTN, ETOH dependence, presenting with concern for withdrawal. Has been cutting back on alcohol for the past 4-5 days. Last drink at around 1700 today (beer). No history of ETOH withdrawal prior (states I was never able to actually stop). Has felt shaky, unwell, N/V/D and decreased PO intake. Per EMS report he has been awake and alert with a HR 70 and they were not able to get a blood pressure. Tachycardia on arrival to 110's, BP 145/127. Anxious and unable to sit still on exam, slight tremors at rest. Will order 1L IVFB and IV thiamine, likely medication once CIWA obtained. ED course: -EKG sinus tachycardia, appropriate intervals, limited interp 2/t baseline artifcat (pt unable to sit still) -CIWA 15; given 10mg diazapam and repeat CIWA 2. -Labs reviewed as below: CBC with leukocytosis to 22 (nonspecific, aside from N/V pt denies any infectious symptoms and is afebrile) CMP very unexpectedly with severe RL with Cr of 13.1 and BUN 101 (patient not encephalopathic on exam), anion gap elevated at 27 (likely 2/t uremia), hyponatremic and hypochloremic. ETOH negative -VBG sent and shows metabolic acidosis with respiratory compensation pH 7.33, bicarb 18, pCO3 34. Lactate elevated at 3.2. Repeat BMP stable/slightly improved with Cr 12.8 (had received ~500cc at time of BMP). Serum tylenol negative and salicylate 4.0 (theraputic range), ethylene glycol & bhb sent out. -CT noncon abd pelvis ordered and independently reviewed; no hydronephrosis or intrabdominal free fluid on my view, radiology read with fluid filled small bowel and colon suggestive of diarrhea. On reassessment patient remains non-toxic, reports feeling much better after the diazapam. States he has been urinating, not sure how often, at least once today. Denies any toxic ingestions. Unable to void; bladder scanned for ~150, becerril ordered. Lungs CTAB, no hypoxia. Will continue with IVF and trend labs and I&O; if not fluid responsive and anuric may need transfer to tertiary facility for further care. Unclear etiology of renal failure at this time (prenal vs intrinsic; while he was somewhat dry on initial exam he does not appear so volume depleted as to explain the severity of his renal status). He does not appear overtly septic and has been afebrile, however wtih N/V/D, leukocytosis, and severe RL must consider possibility of intrabdominal infection. Will need careful dosing of abx; will start wtih dose of IV flagyl here. POCUS shows decompressed bladder and IVC neither plethoric nor flat, some B lines. CXR and BNP ordered as well as repeat VBG, lactate. Total of 2.5 L IVF during 5 hours so far in the ED; UOP currently 0 . Will be signed out to oncoming physician, plan to followup repeat bloodwork and reassess. Dispostion pending results and clinical course; admit [facility] vs (more likely) transfer for nephrology. IMPRESSION: Fluid throughout the small bowel and much of the colon, nonspecific but commonly seen in the setting of diarrhea from any cause, including gastroenteritis. Clinical correlation recommended. Critical Care Time Critical Care Time Critical Care Time: Yes Total Critical Care Time: 45 Attestation: Due to a high probability of clinically significant, life threatening deterioration, the patient required my highest level of preparedness to intervene emergently and I personally spent this critical care time directly and personally managing the patient. This critical care time included obtaining a history; examining the patient; pulse oximetry; ordering and review of studies; arranging urgent treatment with development of a management plan; evaluation of patient's response to treatment; frequent reassessment; and, discussions with other providers. This critical care time was performed to assess and manage the high probability of imminent, life-threatening deterioration that could result in multi-organ failure. It was exclusive of separately billable procedures and treating other patients [facility] All Active Problems Alcohol withdrawal (Acute) Acute uremia (Acute) Acute renal failure (Acute) Alcohol use disorder, severe, dependence (Chronic) 12 pack/day Fatty liver due to alcoholism (Chronic) Hypertension (Chronic) Rectal bleeding (Chronic) Oral leukoplakia (Chronic) Family history of inflammatory bowel disease (Chronic) Cigarette smoker (Chronic) Surgical History History of surgery on extremity Family History Mother No problems noted. Father No problems noted. Brother No problems noted. Daughter No problems noted. Social History Smoking/Tobacco Use Status: Current every day Tobacco Type: cigarettes Smoking risk assessment performed?: Yes Alcohol Intake: current Alcohol Intake frequency: 0-2 drinks per day Drug use: Daily Substance use type: marijuana Details: trying to quit drinking, last drink 5pm had 16 oz beer 05/15/25 Do you feel safe at home: Yes Do you feel safe in your relationship?: Yes POCUS Exam (ED) Limited Bladder Exam DATE OF EXAM: 05/15/25 TIME OF EXAM: 05:05 PROVIDER THAT PERFORMED THE STUDY: Susan Urban REASON FOR EXAM: Other indication: anuric VISUALIZED STRUCTURES: Bladder PERTINENT FINDINGS/IMPRESSION: other impression: decompressed Exam complete Limited Cardiac Exam DATE OF EXAM: 05/15/25 TIME OF EXAM: 05:05 PROVIDER THAT PERFORMED THE STUDY: Susan Urban REASON FOR EXAM: Other indication: renal failure in midst of fluid resus VIEW OBTAINED: Subxiphoid PERTINENT FINDINGS/IMPRESSION: no IVC inspiratory collapsability and No plethoric IVC Exam complete
[2025-05-15 02:21] LABS: Abs Immature Grans 0.37 10^3/uL (0.0-0.06); HCT 48.5 % (40.0-50.0); HGB 17.2 g/dL (13.5-17.5); MCH 33.8 pg (27.0-33.0); MCHC 35.5 % (32.0-36.0); MCV 95 fL (80-95); MPV 10.2 fL (8.0-11.0); Platelet Count 426 10^3/uL (130-400); RBC 5.09 10^6/uL (4.36-5.78); RDW 11.9 % (11.8-14.1); RDW-SD 41.4 fL; WBC 21.98 10^3/uL (4.4-10.8)
[2025-05-15] MEDS: THIAMINE 100 MG in Normal Saline 100 ML 200 MG IVPB (02:22)
[2025-05-15] MEDS: Lactated Ringers 1,000 ML 1000 ML IV (02:23)
[2025-05-15 02:35] LABS: ALT 27 U/L (16-63); AST 24 U/L (15-37); Albumin 3.9 g/dL (3.4-5.0); Alkaline Phosphatase 120 U/L (46-116); Anion Gap 27.6 mmol/L (3-11); Bilirubin, Total 0.3 mg/dL (0.2-1.0); CO2 17.4 mmol/L (21.0-32.0); Calcium 9.7 mg/dL (8.5-10.1); Chloride 85 mmol/L (98-107); Estimated GFR 4.29 (mL/min/1.73m2); Glucose 124 mg/dL (74-106); Magnesium 1.9 mg/dL (1.8-2.4); Potassium 3.9 mmol/L (3.5-5.1); Sodium 130 mmol/L (136-145); Total Protein 8.9 g/dL (6.4-8.2)
[2025-05-15] MEDS: diazePAM 10 MG/2 ML SYR IVP (02:38)
[2025-05-15 02:41] LABS: RBC Morphology Normal
[2025-05-15 02:47] LABS: BUN 101 mg/dL (7-18)
[2025-05-15 03:14] LABS: BE (Venous) -8 mmol/L (-2-3); HCO3 (Venous) 18 mmol/L (23-28); O2 Sat (Venous) 56 %; TCO2 (Venous) 16 mmol/L (24-29); pCO2 (Venous) 34 mmHg (41-51); pO2 (Venous) 32 mmHg
[2025-05-15 03:30] LABS: Anion Gap 25.7 mmol/L (3-11); CO2 18.3 mmol/L (21.0-32.0); Calcium 9.5 mg/dL (8.5-10.1); Chloride 86 mmol/L (98-107); Estimated GFR 4.41 (mL/min/1.73m2); Glucose 106 mg/dL (74-106); Potassium 3.8 mmol/L (3.5-5.1); Sodium 130 mmol/L (136-145)
[2025-05-15 03:37] LABS: BUN 99 mg/dL (7-18)
[2025-05-15 03:41] LABS: Salicylate 4.0 mg/dL (<2.8)
[2025-05-15 03:42] LABS: Acetaminophen < 2 ug/mL (10-30)
--- NOTE | 2025-05-15 03:43 | DI.CT_ITS ---
Exam(s) CT ABDOMEN PELVIS WO EXAM: CT ABDOMEN PELVIS WO CLINICAL HISTORY: acute renal failure, vomiting. TECHNIQUE: Imaging Protocol: Axial computed tomography images with coronal and sagittal reformatted images were created and reviewed. COMPARISON: US US ABDOMEN from 10/15/2023 FINDINGS: Lack of IV contrast does limit evaluation of the abdominal pelvic organs. ABDOMEN: Lung Bases: There is dependent atelectasis. Liver: Normal density. There is a tiny hypodensity in the left lobe of the liver. It is too small for further characterization. Gallbladder and biliary tract: No radiodense calculus or biliary ductal dilation. Pancreas: Normal density, no abnormal calcifications or inflammatory process. Spleen: There is a tiny hypodensity seen in the superior aspect of the spleen. This may represent a cyst or small hemangioma. Kidneys: Normal size, contour and axis.There is a 1-2 mm nonobstructing stone in the anterior aspect of the mid pole of the left kidney. There is no nephrolithiasis or hydronephrosis on the right. There is a 1 cm round hypodensity in the midpole of the right kidney. It is indeterminate. Adrenal glands: No mass is seen. Lymph nodes: Within normal limits. Abdominal Aorta: Abdominal portion non-dilated. Atherosclerotic calcification is present. PELVIS: Bladder:The urinary bladder is incompletely distended limiting evaluation. Bowel: Fluid-filled loops of small and large bowel are present. There is diverticulosis of the colon without evidence of acute diverticulitis. There is no evidence of bowel obstruction or bowel wall thickening. There is no evidence of appendicitis. Peritoneal cavity: No ascites, collection or mesenteric inflammatory response. No free air. Reproductive organs: Unremarkable as visualized. Bones: Within normal limits. Soft Tissues: Small fat containing umbilical hernia. IMPRESSION: 1. There are fluid-filled loops of small large bowel which can be seen with a gastroenteritis. 2. Colonic diverticulosis without evidence of acute diverticulitis. 3. Nonspecific 1 cm hypodensity in the right kidney. Renal ultrasound follow-up is recommended for further characterization. 4. Left nephrolithiasis but no hydronephrosis. 5. The preliminary [facility] report was reviewed. RADIATION DOSE DELIVERED: 668.46mGy.cm Total DLP DATA REPOSITORY: All CT scans at this facility are submitted to the National Radiology Data Registry (NRDR) Dose Index Registry (DIR) with the [employer] (A[employer]). RADIATION OPTIMIZATION: All CT scans at this facility use at least one of these dose optimization techniques: automated exposure control; mA and/or kV adjustment per patient size (includes targeted exams where dose is matched to clinical indication); or iterative reconstruction.
--- NOTE | 2025-05-15 03:53 | DI.VRAD_ITS ---
PROCEDURE INFORMATION: Exam: CT Abdomen And Pelvis Without Contrast Exam date and time: 05/15/2025 3:22 AM Age: 45 years old Clinical indication: Other: Acute renal failure, vomiting TECHNIQUE: Imaging protocol: Computed tomography of the abdomen and pelvis without contrast. COMPARISON: US ABDOMEN 10/15/2023 9:49 AM FINDINGS: Lungs: Dependent atelectasis at the lung bases. Liver: Small indeterminate hypoattenuating hepatic lesion, incompletely characterized but most likely a small cyst or hemangioma. Gallbladder and biliary ducts: Gallbladder partially collapsed. No calcified gallstones seen. No biliary dilatation. Pancreas: Grossly unremarkable unenhanced pancreas. Spleen: Indeterminate hypoattenuating splenic lesion, incompletely characterized but most likely a small cyst or hemangioma. Adrenal glands: Normal appearing adrenal glands. Kidneys and ureters: Small indeterminate hypoattenuating right renal lesion, not well characterized but statistically most likely a small renal cyst. 1 mm nonobstructing left renal calculus. No obstructing ureteral stones, hydronephrosis, or evidence of recent stone passage. Stomach and bowel: No oral contrast. Stomach moderately distended with fluid and gas. Fluid throughout the small bowel. No small bowel dilatation to suggest obstruction. Colon largely well evacuated of fecal material. Fluid throughout the proximal colon. No evidence of diverticulitis or colitis. Appendix: Normal appendix. Intraperitoneal space: No gross ascites or free air. Vasculature: Normal caliber abdominal aorta. Lymph nodes: Scattered small mesenteric lymph nodes, nonspecific. Urinary bladder: Urinary bladder collapsed and not well evaluated but grossly unremarkable, as seen. Reproductive: Normal-appearing prostate gland and seminal vesicles. Bones/joints: No acute fracture seen among the bones of the abdomen or pelvis. Large anterior osteophytes at L3-L4. Congenital lumbar stenosis. Multilevel central canal narrowing and neural foraminal narrowing. Soft tissues: Small fat containing ventral hernia at the umbilicus. IMPRESSION: Fluid throughout the small bowel and much of the colon, nonspecific but commonly seen in the setting of diarrhea from any cause, including gastroenteritis. Clinical correlation recommended. Dictated and Authenticated by: Abdirahman Garcia MD. Orderin Wilmar Davis MD
[2025-05-15] MEDS: MULTIVITAMIN 10 ML, THIAMINE 100 MG, FOLIC ACID 1 MG in DEXTROSE 5%-0.45% SALINE 1,000 ML 42 ML IV (04:05)
[2025-05-15] MEDS: Normal Saline 1,000 ML 1000 ML IV (04:05)
--- NOTE | 2025-05-15 04:15 | DI.RAD_ITS ---
Exam(s) XR CHEST 2V PA LATERAL EXAM: XR CHEST 2V PA LATERAL CLINICAL HISTORY: renal failure TECHNIQUE: 2D digital imaging was performed of the chest. Two images were obtained. PA and lateral views were obtained. COMPARISON: CR LEFT RIBS PA CXR ONLY-3VIEWS from 10/16/2015 FINDINGS: MEDIASTINUM: Normal. HEART: Normal. PULMONARY VASCULATURE: Normal. LUNGS: There are new linear opacities in the left lower lobe. The right lung appears clear. PLEURAL SPACE: No pleural effusion or pneumothorax. BONE:Within normal limits for the patient's age. Healed fractures of the right 7th rib and the left 5th rib. There is again seen a sideplate and screws in the left clavicle. OTHER FINDINGS:Normal. IMPRESSION: 1. Linear opacity seen in the left lower lobe. These are new compared to the prior examination. This may represent atelectasis or scarring. Pneumonia cannot be entirely excluded. A follow-up examination in 4-6 weeks is recommended to document resolution and to exclude other etiologies. 2. Healed right 7th and left 5th rib fractures. 3. The preliminary [facility] report was reviewed. DATA REPOSITORY: RADIATION DOSE DELIVERED:
[2025-05-15] MEDS: metroNIDAZOLE 500 MG/100 ML BAG 100 MG IVPB (05:05)
[2025-05-15] MEDS: Ondansetron 4 MG/2 ML VIAL IVP (05:07)
[2025-05-15 07:13] LABS: EPI 027-NAP1-B1 PRESUMPTIVE NEGATIVE
[2025-05-15 07:17] LABS: BE (Venous) -12 mmol/L (-2-3); HCO3 (Venous) 15 mmol/L (23-28); O2 Sat (Venous) 91 %; TCO2 (Venous) 13 mmol/L (24-29); pCO2 (Venous) 29 mmHg (41-51); pO2 (Venous) 66 mmHg
[2025-05-15 07:41] LABS: Anion Gap 23.1 mmol/L (3-11); CO2 14.9 mmol/L (21.0-32.0); Calcium 8.4 mg/dL (8.5-10.1); Chloride 91 mmol/L (98-107); Estimated GFR 4.63 (mL/min/1.73m2); Glucose 132 mg/dL (74-106); Potassium 3.9 mmol/L (3.5-5.1); Sodium 129 mmol/L (136-145)
[2025-05-15 07:43] LABS: NT-proBNP 167 pg/mL (<300)
[2025-05-15 07:54] LABS: BUN 99 mg/dL (7-18)
--- NOTE | 2025-05-15 08:28 | ED.PROG_ITS ---
Date of service: 05/15/25 Time of Service: 08:28 Medical Decision Making 730 --care was signed out by Dr. Urban. Patient is here for alcohol withdrawal, nausea, vomiting and diarrhea. Patient found to have acute renal insufficiency, significant acidosis with initially elevated lactate, leukocytosis. Patient receiving IV fluid bolus and has received 2.5 L at time of signout. A Kulkarni was attempted to be placed earlier and there was significant resistance. A coud? Kulkarni was placed and there was no output. There was concern that Kulkarni was not in correct position and was removed. Plan at signout was to follow-up on repeat chemistry and consider transfer to higher level of care. 830 --Repeat chemistry shows persistently elevated creatinine of 12.3 with elevated BUN 99. Anion gap improved but remains elevated at 23. Consider rhabdomyolysis and will check CK. Patient was initially normotensive on arrival. He is now hypotensive despite IV fluid boluses. Plan to start Levophed infusion. Patient is afebrile and has had no recent infectious symptoms. He denies respiratory symptoms. He denies urinary symptoms. We have not yet been able to obtain a urine specimen. Chest x-ray reviewed and interpreted by me shows no infiltrate. Flu, RSV, COVID pending. Blood cultures pending. Concern for sepsis. [place] [facility] [place] to higher level of care. --Nursing to secure additional IV access. 919 --spoke to [facility] [place] discussed ED presentation course, they recommend additional broad-spectrum antibiotics to include Zosyn. They will accept patient in transfer pending bed availability. Dr. Johnson to accept patient. [facility] not flying due to weather. Will arrange for ground ambulance. 1025 --notes that patient experiencing chest discomfort, felt like his heart was pounding, noted to be in a junctional rhythm in the upper 40s to low 50s. Pacer pads were placed on the patient. Patient spontaneously converted to a sinus rhythm within 1 minute and symptoms resolved. Upgrading transfer to emergent. 1050 -- Pt now noting he has had multiple tick bites, some were biting for unknown period of time recently. Platelets and LFTs normal. Will consider acute Lyme. I will add doxycycline 100 mg IV and send tick panel. Lab Data Lab results reviewed: Yes I reviewed the patient's lab results. Labs: 05/15/25 04:55 Blood Blood Culture - Pending 05/15/25 04:55 Blood Blood Culture - Pending Laboratory Tests Range/Units 05/15/25 05/15/25 05/15/25 02:10 03:06 05:30 WBC (4.4-10.8) 10^3/uL 21.98 H RBC (4.36-5.78) 10^6/uL 5.09 Hgb (13.5-17.5) g/dL 17.2 Hct (40.0-50.0) % 48.5 MCV (80-95) fL 95 MCH (27.0-33.0) pg 33.8 H MCHC (32.0-36.0) % 35.5 RDW (11.8-14.1) % 11.9 Plt Count (130-400) 10^3/uL 426 H MPV (8.0-11.0) fL 10.2 Immature Gran % See Differential Neutrophils % % 80.0 Lymphocytes % % 8.0 Monocytes % % 9.0 Eosinophils % % 1.0 Basophils % % 0.0 Metamyelocytes % 2 Nucleated RBC % (0.0-0.3) % 0.0 Absolute Neutrophils (1.2-6.7) 10^3/uL 17.58 H Absolute Lymphocytes (1.2-3.4) 10^3/uL 1.76 Absolute Monocytes (0.1-0.8) 10^3/uL 1.98 H Absolute Eosinophils (0.0-0.7) 10^3/uL 0.22 Absolute Basophils (0.0-0.2) 10^3/uL 0.00 RBC Morphology Normal VBG pH (7.31-7.41) 7.33 VBG pCO2 (41-51) mmHg 34 L VBG pO2 mmHg 32 VBG HCO3 (23-28) mmol/L 18 L VBG Total CO2 (24-29) mmol/L 16 L VBG O2 Saturation % 56 VBG Base Excess (-2-3) mmol/L -8 L VBG Lactate (<or=2.0) mmol/L 3.2 H* Sodium (136-145) mmol/L 130 L 130 L Potassium (3.5-5.1) mmol/L 3.9 3.8 Chloride (98-107) mmol/L 85 L 86 L Carbon Dioxide (21.0-32.0) mmol/L 17.4 L 18.3 L Anion Gap (3-11) mmol/L 27.6 H 25.7 H BUN (7-18) mg/dL 101 H* 99 H* Creatinine (0.70-1.30) mg/dL 13.1 H* 12.8 H* Est GFR (CKD-EPI 2020) (mL/min/1.73m2) 4.29 4.41 Glucose (74-106) mg/dL 124 H 106 Calcium (8.5-10.1) mg/dL 9.7 9.5 Magnesium (1.8-2.4) mg/dL 1.9 Total Bilirubin (0.2-1.0) mg/dL 0.3 AST (15-37) U/L 24 ALT (16-63) U/L 27 Alkaline Phosphatase (46-116) U/L 120 H Creatine Kinase (39-308) U/L NT-Pro-B Natriuret Pep (<300) pg/mL Total Protein (6.4-8.2) g/dL 8.9 H Albumin (3.4-5.0) g/dL 3.9 Stl C.difficile Tox PCR (Negative) Negative Salicylates (<2.8) mg/dL 4.0 Acetaminophen (10-30) ug/mL < 2 Ethyl Alcohol (<10) mg/dL < 3.0 Range/Units 05/15/25 07:10 WBC (4.4-10.8) 10^3/uL RBC (4.36-5.78) 10^6/uL Hgb (13.5-17.5) g/dL Hct (40.0-50.0) % MCV (80-95) fL MCH (27.0-33.0) pg MCHC (32.0-36.0) % RDW (11.8-14.1) % Plt Count (130-400) 10^3/uL MPV (8.0-11.0) fL Immature Gran % Neutrophils % % Lymphocytes % % Monocytes % % Eosinophils % % Basophils % % Metamyelocytes % Nucleated RBC % (0.0-0.3) % Absolute Neutrophils (1.2-6.7) 10^3/uL Absolute Lymphocytes (1.2-3.4) 10^3/uL Absolute Monocytes (0.1-0.8) 10^3/uL Absolute Eosinophils (0.0-0.7) 10^3/uL Absolute Basophils (0.0-0.2) 10^3/uL RBC Morphology VBG pH (7.31-7.41) 7.31 VBG pCO2 (41-51) mmHg 29 L VBG pO2 mmHg 66 VBG HCO3 (23-28) mmol/L 15 L VBG Total CO2 (24-29) mmol/L 13 L VBG O2 Saturation % 91 VBG Base Excess (-2-3) mmol/L -12 L VBG Lactate (<or=2.0) mmol/L 1.1 Sodium (136-145) mmol/L 129 L Potassium (3.5-5.1) mmol/L 3.9 Chloride (98-107) mmol/L 91 L Carbon Dioxide (21.0-32.0) mmol/L 14.9 L Anion Gap (3-11) mmol/L 23.1 H BUN (7-18) mg/dL 99 H* Creatinine (0.70-1.30) mg/dL 12.3 H* Est GFR (CKD-EPI 2020) (mL/min/1.73m2) 4.63 Glucose (74-106) mg/dL 132 H Calcium (8.5-10.1) mg/dL 8.4 L Magnesium (1.8-2.4) mg/dL Total Bilirubin (0.2-1.0) mg/dL AST (15-37) U/L ALT (16-63) U/L Alkaline Phosphatase (46-116) U/L Creatine Kinase (39-308) U/L 428 H NT-Pro-B Natriuret Pep (<300) pg/mL 167 Total Protein (6.4-8.2) g/dL Albumin (3.4-5.0) g/dL Stl C.difficile Tox PCR (Negative) Salicylates (<2.8) mg/dL Acetaminophen (10-30) ug/mL Ethyl Alcohol (<10) mg/dL Critical Care Time Critical Care Time Critical Care Time: Yes Total Critical Care Time: 80 Attestation: Due to a high probability of clinically significant, life threatening deterioration, the patient required my highest level of preparedness to intervene emergently and I personally spent this critical care time directly and personally managing the patient. This critical care time included obtaining a history; examining the patient; pulse oximetry; ordering and review of studies; arranging urgent treatment with development of a management plan; evaluation of patient's response to treatment; frequent reassessment; and, discussions with other providers. This critical care time was performed to assess and manage the high probability of imminent, life-threatening deterioration that could result in multi-organ failure. It was exclusive of separately billable procedures and treating other patients and teaching time. Please see MDM section and the rest of the note for further information on patient assessment and treatment. Discharge Plan Disposition Patient Disposition: Transfer-Acute Inpatient Care Specific Acute Inpt Facility: [facility] Condition: Critical Discharge Details Clinical Impression: Acute renal failure, Acute uremia, Alcohol withdrawal, Sepsis, Junctional escape rhythm Primary Care Provider: Erica Julien ED Provider: Franklyn Orr Home Meds and New Rx's Prescriptions: No Action amlodipine 5 mg tablet 5 mg PO DAILY Qty: 90 3RF naltrexone 50 mg tablet 50 mg PO DAILY Rx Instructions: take for 14 days thiamine HCl (vitamin B1) 100 mg tablet 100 mg PO DAILY folic acid 1 mg tablet 1 mg PO DAILY Thera-M 9 mg iron-400 mcg tablet 1 tab PO DAILY lisinopril 40 mg tablet 40 mg PO DAILY Qty: 90 3RF Discharge Data Discharge Date/Time-TO BE ENTERED AT DEPARTURE: 05/15/25 11:13
[2025-05-15] MEDS: Norepinephrine in D5W 8 MG/250 ML BAG 9.375 MG IV (08:47)
--- NOTE | 2025-05-15 08:49 | DI.[facility]_ITS ---
PROCEDURE INFORMATION: Exam: XR Chest Exam date and time: 05/15/2025 8:00 AM Age: 45 years old Clinical indication: Other: Renal failure TECHNIQUE: Imaging protocol: Radiologic exam of the chest. Views: 2 views. COMPARISON: No relevant prior studies are available for comparison. FINDINGS: Lungs: Density projecting over the right posterior 7th rib which demonstrates a fracture. Ill-defined bibasilar opacities, likely atelectasis. As both cysts versus scarring in the left mid lung. Pleural spaces: No large pleural effusion seen. Heart/Mediastinum: No cardiomegaly. Bones/joints: Prior fixation of the left clavicle. Right clavicular deformity. Additional nonacute rib deformities. IMPRESSION: 1. Density projecting over the right posterior 7th rib, likely related to callus formation. Cannot exclude lung lesion. Comparison with prior studies would be helpful. Follow-up if clinically warranted. 2. Additional findings as above. Dictated and Authenticated by: Rosalina Rojas MD. Orderin Wilmar Davis MD
[2025-05-15 08:53] LABS: Creatine Kinase 428 U/L (39-308)
[2025-05-15 09:32] LABS: COVID-19 PCR Negative (Negative); RSV PCR Negative (Negative)
[2025-05-15] MEDS: Lidocaine 2% Jelly 11 ML SYR (10:02)
--- NOTE | 2025-05-15 10:15 | RT.EKG_ITS ---
APPROVED REPORT Exam: Resting ECG Reason for Exam: EKG change Patient Location: E HR:89 bpm ECG Measurements Heart Rate 89 AXIS WY 185 P 47 QRSd 75 QRS 51 QT 372 T 77 QTc 452 Conclusion Sinus rhythm...normal P axis, V-rate 60- 99
[2025-05-15] MEDS: Lactated Ringers 1,000 ML 200 ML IV (10:32)
[2025-05-15] MEDS: PIPERACILLIN/TAZO 4.5 GM in Normal Saline 100 ML IVPB (11:02)
[2025-05-15] MEDS: DOXYCYCLINE 100 MG in Normal Saline 100 ML IVPB (11:02)
[2025-05-17 09:46] LABS: Lyme Ab w Rflx to Lyme Confirm Positive (Negative)
[2025-05-17 15:58] LABS: Lyme IgG Ab Positive (Negative)
--- NOTE | 2025-05-17 16:19 | W.ED.FU ---
Date of service: 05/17/25 Time of Service: 16:20 Follow Up Plan: I called the patient at home. He reported feeling well. [place] [facility] [place] been [place] today. He had been discharged on 10 days of empiric doxycycline to treat Lyme. His Lyme IgG antibody returned positive. His IgM was negative. I advised patient that he most likely had had Lyme in the past but that he should continue taking his doxycycline until the remainder of his tick panel comes back and he follows up with his primary care provider next week. I also advised that he should return to the ED if you develop fevers or felt unwell. He understood his return indications.
[2025-05-18 23:37] LABS: B. miyamotoi PCR Negative (Negative); Babesia divergens/MO-1 Negative (Negative); Ehrlichia muris eauclairensis Negative (Negative)
--- NOTE | 2025-05-19 10:35 | NUR.NOTE ---
Access chart to determine antibiotic on discharge for Lyme result; which had positive results. Patient was transferred to [facility] [place]. Results faxed to them and also given to Dr. Orr for review. . Nursing Note:
== END 2025-05-15 11:13 | disposition short-term general hospital (02) ==
PROVIDERS: Student in an Organized Health Care Education/Training Program; Emergency Provider Student in an Organized Health Care Education/Training Program; PCP Nurse Practitioner Family
DX: F10.230 Alcohol dependence with withdrawal, uncomplicated (principal); N17.9 Acute kidney failure, unspecified; I10 Essential (primary) hypertension; R00.0 Tachycardia, unspecified
CPT/HCPCS: 00123; 36415; 76857; 80048; 80053; 82550; 82693; 82805; 86617; 87040; 87637; 87798; 93005; 93308; 96361; 96365; 96366; 96367; 96375; 99285; 71046; 74176; 80320; 80329; 81003; 82010; 83605; 83735; 83880; 85025; 86618; 93010; J1836; J2405; J2543; J3360; J3411